=== PATIENT | female | born 1980 | race Caucasian/White ===

== ENCOUNTER 2022-05-18 00:22 | Day surgery (SDC) | payer OTHER, SELFPAY ==
[2022-05-13 09:19] VITALS: BMI 35.5
--- NOTE | 2022-05-13 09:29 | PC.NURSE ---
Report to the Outpatient Waiting Room, entrance under the green pavilion located off [facility], at time 1230 on date 05/18/22. OR Time: 1330. - You and your visitor will be asked a series of questions to screen for COVID 19 for your protection. - Only one visitor is allowed at this time. - The patient visitor is requested to leave or wait in car when not with patient. - A mask is required within the hospital. Patients may have LIGHT BREAKFAST/LUNCH Take the following medications with a SIP of water the morning of surgery: RX'D Medications to discontinue per physician: N/A Date to take last dose: N/A Please no make-up, nail austrian, hairspray, perfume, deodorant, or body powder the day of surgery. No jewelry (including any body piercings) or valuables the day of surgery, leave them at home. Please take a shower or bath the night before, or the morning of, surgery with an antibacterial soap. Wear comfortable, loose fitting clothing. - Jewelry must be removed prior to entering the operating room. Rings and piercings that are not removed may be cut off. - The hospital will not accept responsibility for valuables. - Please leave all valuables, including medications, at home the day of surgery. YOU MAY DRIVE YOURSELF HOME AFTER SURGERY Follow any additional instructions given to you from your surgeon. If you or anyone in your household have experienced Covid symptoms in the past week, please notify your surgeon or the nurse liaison at the phone number below for possible testing. Telephone instructions given to PT - MOIRA LOGAN and asked if any additional questions and then verbalized understanding. Patient advised to call surgeon office or pre surgery nurse liaison [phone] if any additional questions.
--- NOTE | 2022-05-18 09:03 | P.HP_ITS ---
H&P: HPI History of Present Illness Date/Time: 05/18/22 09:03 Chief Complaint: Menorrhagia Narrative: The patient is a 42-year-old 2 para to with menorrhagia. Patient with cycles monthly however she is passing clots and having heavy flow changing protection approximately every hour at leaking through. Pelvic ultrasound was normal. Patient was told she had a history of low iron but most recent hemogl obin is 12.6. Was recommended to proceed with D&C hysteroscopy. Risks of infection, bleeding, and perforation were reviewed. Possible pathology is discussed. Review of Systems Constitutional: Constitutional: Reports fatigue ENT: Reports other (Seasonal allergy symptoms) Genitourinary: Genitourinary: Reports nocturia, Reports urinary incontinence (Urge incontinence and genuine stress incontinence), Reports urinary urgency and Reports other (Symptoms have improved since starting on [facility]) FORMERLY [facility], [facility]–1983 Surgical History Surgical History (Updated 05/18/22 @ 09:07 by Barbie Looney MD) History of X2 Status post breast reduction Social History Social History Smoking status: Former smoker Tobacco type: cigarettes Additional smoking assessment comments: [employer] S[employer], QUIT 2011 Alcohol intake: never Substance use: never Substance use type: does not use Living arrangements: with family Spiritual care concerns: No Meds Home Medications and Allergies Home Medications Medication Instructions Recorded Confirmed Type amoxicillin 875 mg-potassium 1 tablet PO BID 05/13/22 05/13/22 History clavulanate 125 mg tablet fexofenadine 180 mg tablet 180 mg PO DAILY 05/13/22 05/13/22 History Allergies Allergy/AdvReac Type Severity Reaction Status Date / Time No Known Allergies Allergy Verified 05/13/22 09:18 Exam Const: General: healthy appearing and alert Orientation/consciousness: patient oriented x3 GI: GI Palp: Yes Soft to palpation, No Tenderness to palpation present (GI) and No Palpable mass present : External Female Exam: normal external appearance Speculum Exam - Vagina: normal appearance of the vagina and normal vaginal discharge Speculum Exam - Cervix: normal appearance of the cervix Bimanual exam- vagina & uterus: uterine size normal and consistency normal Bimanual Exam- Adnexa, other: normal adnexae and No adnexal tenderness Neuro: General: patient oriented x3 Assessment and Plan Assessment and plan (1) Menorrhagia: Code(s): N92.0 - Excessive and frequent menstruation with regular cycle Status: Acute Assessment and Plan: Plan to proceed with D&C hysteroscopy
--- NOTE | 2022-05-18 09:03 | WPDHPUPDATE1 ---
History and Physical Update Update Date/Time: 05/18/22 09:03 History and Physical has been reviewed, including an updated exam of the patient. There are NO changes in the patient's condition. Risks, benefits, and alternatives have been discussed and questions answered. Patient agrees to proceed with procedure.
--- NOTE | 2022-05-18 09:09 | WPDHPUPDATE1 ---
History and Physical Update Update Date/Time: 05/18/22 09:09 History and Physical has been reviewed, including an updated exam of the patient. There are NO changes in the patient's condition. Risks, benefits, and alternatives have been discussed and questions answered. Patient agrees to proceed with procedure.
[2022-05-18] MEDS: ACETAMINOPHEN 500 MG TABLET 1000 MG PO (11:37)
[2022-05-18] MEDS: KETOROLAC 30 MG/ML VIAL (*BKC) IM (11:43)
[2022-05-18 12:15] VITALS: BP 120/72; PULSE 62; RESP 20; TEMP 36.7; O2SAT 98
[2022-05-18 13:05] VITALS: BP 123/74; PULSE 60; RESP 16; O2SAT 99
[2022-05-18 13:15] VITALS: BP 120/72; PULSE 60; RESP 16; O2SAT 99
[2022-05-18 13:20] VITALS: BP 129/76; PULSE 83; RESP 20; O2SAT 100
--- NOTE | 2022-05-18 13:24 | W.PM.PROC2 ---
Procedure Note - Detailed Date of Procedure 05/18/22 Pre-op Diagnosis menorrhagia Post-op Diagnosis Same Procedure Performed Cervical dilatation failed hysteroscopy and curettage Surgeon Barbie Looney MD Anesthesia Local Findings The cervix is stenotic. There is a perforation at the fundus. Description of Procedure The patient was taken to the operating room and placed in the dorsal lithotomy position. She was prepped and draped in usual sterile fashion. [place] speculum was placed in the vagina and the cervix was grasped on the anterior lip with a tenaculum. The cervix was injected with 10cc of 1% lidocaine. The uterus was attempted to be sounded but internal stenosis is encountered at 2cm. The small dilator was placed and appears to enter the cavity. The cervix is serially dilated to a 6. The small diagnostic hysteroscope was placed and immediately noted to have perforation. All instruments are removed. Sponge, needle, and instrument counts are correct per the OR staff. As the patient is only under local anesthesia, the perforation was reviewed and the patient will be rescheduled after giving Cytotec 1 week prior to procedure. Estimated Blood Loss 5 Drains No Packing No Pathology None sent Complications Other complications ( uterine perforation) Condition Stable Disposition PACU
[2022-05-18 13:28] VITALS: BP 132/80; PULSE 63; RESP 14; O2SAT 100
== END 2022-05-18 13:50 | disposition home or self-care (01) ==
PROVIDERS: PCP Nurse Practitioner Family; Visit Provider Obstetrics & Gynecology Gynecology
PROC: 0U5B8ZZ Destruction of Endometrium, Via Natural or Artificial Opening Endoscopic (ICD-10-PCS; CPT 58563; principal; 2022-05-18 13:30)
DX: N92.0 Excessive and frequent menstruation with regular cycle (principal); N88.2 Stricture and stenosis of cervix uteri; N99.71 Accidental puncture and laceration of a genitourinary system organ or structure during a genitourinary system procedure; Z87.891 Personal history of nicotine dependence
CPT/HCPCS: 58558; A9270; J1885